=== PATIENT | male | born 1965 ===

== ENCOUNTER 2020-11-04 11:06 | Emergency (ER) | payer SELFPAY ==
[~2020-11-04] VITALS: Ht 167.6 cm; Wt 86.4 kg
[2020-11-04 11:15] VITALS: TEMP 97
[2020-11-04] MEDS ORDERED: CEPHALEXIN500 M1 PO (11:54)
[2020-11-04 12:20] VITALS: BP 126/84; PULSE 68
== END 2020-11-04 12:20 | disposition home or self-care (01) ==
LOC: COL.ER 11:06
DX: S61.512A Laceration without foreign body of left wrist, initial encounter (principal); W26.8XXA Contact with other sharp object(s), not elsewhere classified, initial encounter; Y99.0 Civilian activity done for income or pay